=== PATIENT | female | born 1995 | race Two or more races ===

== ENCOUNTER 2018-04-01 21:03 | Emergency (ER) | payer SELFPAY ==
[2018-04-01 21:11] VITALS: BP 87/49; BMI 24.4
--- NOTE | 2018-04-03 23:58 | DR.NAUSEAF ---
HPI - Primary Care Physician Primary Care Physician: none - Complaints Chief Complaint:: started vomiting today and has had a fever all day. also c/o having been on her cycle for the past month - Source History Provided: Patient, Friend - Mode of Arrival Mode of Arrival: Ambulatory - Timing Onset of Chief Complaint: 04/01/18 PMH - PMH Past Medical History: No Past Surgical History: No - Family History History of Family Medical Conditions: No Family Medical History: Coronary Artery Disease, Hypertension - Social History Do you use any recreational Drugs:: No - infectious screening In the last 2 months have you had wt loss of >10#?: NO Have you had fever, night sweats or hemotysis?: No Have you traveled outside the country in the last 6 months?: No Isolation: Standard PE - Vital Signs Vitals: Temperature 98.0 F Pulse Rate 79 Respiratory Rate 18 Blood Pressure [Left Arm] 118/82 Blood Pressure 87/49 O2 Sat by Pulse Oximetry 98 - Discharge Plan Disposition: [facility]BS After Triage Condition: Stable - Follow ups/Referrals Follow ups/Referrals: NFD,None [Primary Care Provider] - 3 days - Instructions
== END 2018-04-01 23:20 | disposition left against medical advice (07) ==
LOC: ER 21:15
DX: R11.10 Vomiting, unspecified (principal)
CPT/HCPCS: 99281